=== PATIENT | female | born 1950 | race Two or more races ===

== ENCOUNTER 2023-07-31 11:41 | Emergency (ER) | payer MEDICARE, OTHER ==
[~2023-07-31] VITALS: Ht 160 cm; Wt 84.0 kg
[2023-07-31] MEDS ORDERED: insulin (11:44)
[2023-07-31] MEDS ORDERED: glipizide (11:44)
[2023-07-31 11:45] VITALS: TEMP 98; O2SAT 97
[2023-07-31 12:15] VITALS: BP 131/85; PULSE 92; RESP 16
[2023-07-31] MEDS ORDERED: IBUPROFEN 600MG TABLET PO ONE (12:15)
[2023-07-31] MEDS ORDERED: NAPR-681 MT (14:05)
== END 2023-07-31 15:35 | disposition home or self-care (01) ==
LOC: ER 11:41
DX: S20.211A Contusion of right front wall of thorax, initial encounter (principal); S80.01XA Contusion of right knee, initial encounter; M25.531 Pain in right wrist; E11.9 Type 2 diabetes mellitus without complications; Z88.0 Allergy status to penicillin; W01.0XXA Fall on same level from slipping, tripping and stumbling without subsequent striking against object, initial encounter; Y93.89 Activity, other specified; Y92.89 Other specified places as the place of occurrence of the external cause; Y99.8 Other external cause status
CPT/HCPCS: 29125; 71101; 73110; 73562; 93005; 99284